=== PATIENT | female | born 1975 | race Caucasian/White ===

== ENCOUNTER 2016-10-16 10:10 | Emergency (ER) | payer SELFPAY ==
[~2016-10-16] VITALS: Ht 167.6 cm; Wt 84.0 kg
[2016-10-16] MEDS ORDERED: NAPROXEN 250 MG TABLET PO ONE (11:15)
[2016-10-16 12:36] VITALS: BP 127/72
[2016-10-16 12:43] LABS: GLUCOSE, URINE (UA) NEGATIVE (NEGATIVE); KETONES,URINE NEGATIVE (NEGATIVE); LEUKOCYTE ESTERASE ,URINE TRACE (NEGATIVE); OCCULT BLOOD,URINE LARGE (NEGATIVE); PROTEIN,URINE NEGATIVE (NEGATIVE)
[2016-10-16 12:54] LABS: APPEARANCE,URINE HAZY (CLEAR)
[2016-10-16 12:56] LABS: RBC,URINE 0-2 /HPF (0-2); SQUAMOUS EPITHELIAL CELL,UR Moderate /LPF (None Seen)
[2016-10-16 12:57] LABS: URINALYSIS COMMENT Few Trichomonas seen
== END 2016-10-16 12:39 | disposition home or self-care (01) ==
LOC: EMS 10:14
DX: M76.62 Achilles tendinitis, left leg (principal); M76.61 Achilles tendinitis, right leg; R39.15 Urgency of urination
CPT/HCPCS: 99283